=== PATIENT | female | born 1940 | race Two or more races ===

== ENCOUNTER 2021-11-28 08:00 | Day surgery (SDC) | payer OTHER ==
[~2021-11-28 08:00] MED LIST: CENTRUM CHEWAB1 EAC1 PO; LIPITOR40 MG PO
== END 2021-11-28 19:55 | disposition home or self-care (01) ==
LOC: CIR.AMB 08:00
PROVIDERS: ATTEND Specialist
DX: C54.1 Malignant neoplasm of endometrium (principal); N72 Inflammatory disease of cervix uteri; Z20.822 Contact with and (suspected) exposure to COVID-19; Z86.16 Personal history of COVID-19; E78.5 Hyperlipidemia, unspecified

== ENCOUNTER 2022-01-23 11:45 | Inpatient (IN) | payer OTHER ==
[~2022-01-23] VITALS: Ht 162.6 cm; Wt 68.0 kg
[2022-01-25] MEDS ORDERED: VITAMIN D3125 MCG (13:18)
[2022-01-25] MEDS ORDERED: ADVIL LIQUI-GE200 MG (13:18)
== END 2022-01-26 15:06 | disposition home or self-care (01) | DRG 734 ==
LOC: ADM 11:45 → OB/GYN 01-24 07:51 → O/R 01-24 07:51 → CIR.AMB 01-24 11:45 → SURH 01-24 11:45 → EDSTATUS 01-24 11:45 → OB/GYN 01-24 21:26
PROVIDERS: ADMIT Specialist; ATTEND Specialist
PROC: 07TC0ZZ Resection of Pelvis Lymphatic, Open Approach (ICD-10-PCS; 2022-01-24)
PROC: 0UT70ZZ Resection of Bilateral Fallopian Tubes, Open Approach (ICD-10-PCS; 2022-01-24)
PROC: 0UT90ZZ Resection of Uterus, Open Approach (ICD-10-PCS; 2022-01-24)
PROC: 0UT20ZZ Resection of Bilateral Ovaries, Open Approach (ICD-10-PCS; 2022-01-24)
PROC: 0DTU0ZZ Resection of Omentum, Open Approach (ICD-10-PCS; 2022-01-24)
PROC: 07TD0ZZ Resection of Aortic Lymphatic, Open Approach (ICD-10-PCS; principal; 2022-01-24 14:15)
DX: C54.1 Malignant neoplasm of endometrium (principal); C79.63 Secondary malignant neoplasm of bilateral ovaries; C77.5 Secondary and unspecified malignant neoplasm of intrapelvic lymph nodes; Z20.822 Contact with and (suspected) exposure to COVID-19; D25.2 Subserosal leiomyoma of uterus